=== PATIENT | female | born 1985 | race Caucasian/White ===

== ENCOUNTER 2017-11-21 12:00 | Observation (INO) | payer BC ==
[~2017-11-21] VITALS: Ht 162.6 cm; Wt 78.0 kg
[2017-11-21] MEDS ORDERED: PHARMACY COMMUNICATION MISC SCH (13:45)
[2017-11-21] MEDS ORDERED: LACTATED RINGERS 1000ML 1,000 ML IV SCH (13:45)
[2017-11-21] MEDS ORDERED: TERBUTALINE SULFATE VIAL 1MG/ML SQ SCH (13:45)
[2017-11-21] MEDS ORDERED: TERBUTALINE SULFATE VIAL 1MG/ML SQ ONE (14:27)
[2017-11-21] MEDS ORDERED: CELESTONE SOLUSPAN 6 MG/ML 5ML VIAL ONE (14:28)
[2017-11-21] MEDS ORDERED: CELESTONE SOLUSPAN 6 MG/ML 5ML VIAL IM SCH (15:00)
[2017-11-21] MEDS ORDERED: TERBUTALINE SULFATE PO SCH (15:00)
[2017-11-21] MEDS ORDERED: MAGNESIUM SULFATE 1,000 ML IV PRN (16:12)
[2017-11-21] MEDS ORDERED: MAGNESIUM 4GM PREMIX 100ML 100 ML IV SCH (16:15)
[2017-11-21] MEDS ORDERED: CALCIUM GLUCONATE 1 GM/10 ML VIAL IV PRN (16:15)
[2017-11-21] MEDS ORDERED: MAGNESIUM 4GM PREMIX 100ML 100 ML IV ONE (16:24)
[2017-11-21] MEDS ORDERED: MAGNESIUM SULFATE 1,000 ML IV ONE (16:55)
[2017-11-21] MEDS ORDERED: CALCIUM GLUCONATE 1 GM in SODIUM CHLORIDE 0.9% 50 ML IV PRN (17:30)
[2017-11-21] MEDS: OSELTAMIVIR PHOSPHATE 75 MG CAP PO SCH (17:40)
[2017-11-22] MEDS ORDERED: AMPICILLIN 1GM+NS 50ML 50 ML IV SCH (08:45)
[2017-11-22] MEDS ORDERED: AMPICILLIN 2GM+NS 100ML 100 ML IV SCH (08:45)
[2017-11-22] MEDS ORDERED: AMPICILLIN 2GM+NS 100ML 100 ML IV ONE (10:23)
[2017-11-22] MEDS: OSELTAMIVIR PHOSPHATE 75 MG CAP PO SCH (10:28)
== END 2017-11-22 11:20 | disposition home or self-care (01) ==
LOC: LDH 12:00
PROVIDERS: ADMIT Obstetrics & Gynecology; ATTEND Obstetrics & Gynecology
DX: O62.9 Abnormality of forces of labor, unspecified (principal); O40.3XX0 Polyhydramnios, third trimester, not applicable or unspecified; O24.419 Gestational diabetes mellitus in pregnancy, unspecified control; Z3A.34 34 weeks gestation of pregnancy
CPT/HCPCS: 36415; 83735; 96361 ×2; 96365; 96372 ×2; G0378 ×24; J0290; J0702; J3105; J3475 ×2; J7120

== ENCOUNTER 2017-12-12 06:08 | Inpatient (IN) | payer BC ==
[~2017-12-12] VITALS: Ht 162.6 cm; Wt 79.8 kg
[2017-12-12] MEDS ORDERED: LACTATED RINGERS 1000ML 1,000 ML IV PRN (06:12)
[2017-12-12] MEDS ORDERED: OXYTOCIN 10 USP UNITS/ML 20 UNIT in LACTATED RINGERS 1000ML 1,000 ML IV SCH (06:15)
[2017-12-12] MEDS ORDERED: TERBUTALINE SULFATE VIAL 1MG/ML SQ PRN (06:15)
[2017-12-12 07:07] LABS: APPEARANCE,URINE Cloudy (CLEAR); BILIRUBIN,URINE Negative (NEGATIVE); COLOR,URINE Yellow (YELLOW); GLUCOSE, URINE (UA) Negative (NEGATIVE); KETONES,URINE Negative (NEGATIVE); LEUKOCYTE ESTERASE ,URINE Moderate (NEGATIVE); NITRATE,URINE Negative (NEGATIVE); OCCULT BLOOD,URINE Negative (NEGATIVE); PROTEIN,URINE Negative (NEGATIVE); UROBILINOGEN,URINE 0.2 mg/dL (0.2-1.0)
[2017-12-12 07:12] LABS: BACTERIA,URINE Few /HPF (None Seen); SQUAMOUS EPITHELIAL CELL,UR Moderate /LPF (0-2)
[2017-12-12 07:51] LABS: MEAN CORPUSCULAR HEMOGLOBIN 29.5 pg (27.0-33.0); MEAN CORPUSCULAR HGB CONC 34.3 g/dL (32.0-36.0); PLATELET COUNT (AUTO) 303 K/uL (130-400); RED BLOOD CELL COUNT(AUTO) 3.84 MIL/uL (4.00-5.50); RED CELL DISTRIBUTION WIDTH 15.2 % (11.0-15.5); WHITE BLOOD COUNT (AUTO) 10.3 K/uL (4.8-10.8)
[2017-12-12] MEDS ORDERED: NALOXONE HCL 0.4 MG/1 ML ML IV PRN (09:15)
[2017-12-12] MEDS ORDERED: LACTATED RINGERS 500 ML 500 ML IV PRN (09:15)
[2017-12-12] MEDS ORDERED: EPHEDRINE SULFATE 50 MG/ML AMPULE IVP PRN (09:15)
[2017-12-12] MEDS ORDERED: ROPIVACAINE 0.2%200ML EPIDURAL 200 ML EP SCH (09:15)
[2017-12-12] MEDS ORDERED: OXYTOCIN 10 USP UNITS/ML ONE ×3 (09:19→22:35)
[2017-12-12] MEDS ORDERED: LACTATED RINGERS 1000ML 1,000 ML IV ONE ×2 (19:30→22:35)
[2017-12-12] MEDS ORDERED: BENZOCAINE/LANOLIN/ALOE VERA 60 ML AEROSOL TP PRN (20:15)
[2017-12-12] MEDS ORDERED: ACETAMINOPHEN 325 MG TAB PO PRN (20:15)
[2017-12-12] MEDS ORDERED: WITCH HAZEL 1 PAD TP PRN (20:15)
[2017-12-12] MEDS ORDERED: LANOLIN 30GM OINTMENT TP PRN (20:15)
[2017-12-12] MEDS ORDERED: DIPH,PERTUSS(ACELL),TET VAC/PF 0.5 ML VIAL IM PRN (20:15)
[2017-12-12] MEDS ORDERED: ACETAMINOPHEN-CODEINE 300/30MG TAB PO PRN (20:15)
[2017-12-12] MEDS ORDERED: HYDROCODONE/ACETAMINOPHEN 5/325 MG TAB PO PRN (20:15)
[2017-12-12] MEDS ORDERED: MEASLES/MUMPS/RUBELLA VACCINE, LIVE 0.5 ML/VIAL SQ PRN (20:15)
[2017-12-12] MEDS: DOCUSATE SODIUM 100 MG CAP PO SCH (21:05)
[2017-12-12 22:58] VITALS: BP 120/60
[2017-12-12] MEDS: IBUPROFEN 600 MG TABLET PO PRN (23:38)
[2017-12-13 03:28] VITALS: BP 104/54
[2017-12-13 07:27] VITALS: BP 104/62
[2017-12-13 08:36] LABS: HEPATITIS Bs ANTIGEN SCREEN P Negative (Negative)
[2017-12-13] MEDS: DOCUSATE SODIUM 100 MG CAP PO SCH ×2 (09:13→21:01)
[2017-12-13] MEDS: IBUPROFEN 600 MG TABLET PO PRN ×2 (09:14→15:57)
[2017-12-13 11:37] VITALS: BP 114/70
[2017-12-13 15:11] VITALS: BP 107/58
[2017-12-13 19:20] VITALS: BP 104/67
[2017-12-13 23:11] VITALS: BP 116/68
[2017-12-14 03:01] VITALS: BP 111/72
[2017-12-14] MEDS: IBUPROFEN 600 MG TABLET PO PRN (03:19)
[2017-12-14 07:22] VITALS: BP 98/62
[2017-12-14] MEDS: DOCUSATE SODIUM 100 MG CAP PO SCH (08:39)
[2017-12-14 11:34] VITALS: BP 118/80
== END 2017-12-14 15:15 | disposition home or self-care (01) | DRG 775 ==
LOC: LDH 06:08 → WSH 22:50
PROVIDERS: ADMIT Obstetrics & Gynecology; ATTEND Obstetrics & Gynecology
PROC: 10907ZC Drainage of Amniotic Fluid, Therapeutic from Products of Conception, Via Natural or Artificial Opening (ICD-10-PCS; principal; 2017-12-12)
PROC: 10E0XZZ Delivery of Products of Conception, External Approach (ICD-10-PCS; 2017-12-12)
PROC: 00HU33Z Insertion of Infusion Device into Spinal Canal, Percutaneous Approach (ICD-10-PCS; 2017-12-12)
PROC: 3E0R3BZ Introduction of Anesthetic Agent into Spinal Canal, Percutaneous Approach (ICD-10-PCS; 2017-12-12)
PROC: 3E0234Z Introduction of Serum, Toxoid and Vaccine into Muscle, Percutaneous Approach (ICD-10-PCS; 2017-12-13)
PROC: 30233S1 Transfusion of Nonautologous Globulin into Peripheral Vein, Percutaneous Approach (ICD-10-PCS; 2017-12-13)
DX: O32.1XX0 Maternal care for breech presentation, not applicable or unspecified (principal); O24.420 Gestational diabetes mellitus in childbirth, diet controlled; Z23 Encounter for immunization; Z37.0 Single live birth; Z3A.37 37 weeks gestation of pregnancy; Z90.49 Acquired absence of other specified parts of digestive tract
CPT/HCPCS: 36415; 81001; 83033; 85027; 86592; 86850; 86900; 86901; 87340; 90715; A4314; J2590; J2791; J3105; J7120

== ENCOUNTER 2020-12-05 19:39 | Inpatient (IN) | payer BC ==
[~2020-12-05] VITALS: Ht 162.6 cm; Wt 89.4 kg
[2020-12-05] MEDS ORDERED: BUTORPHANOL TARTRATE 2 MG/ML IVP PRN (20:00)
[2020-12-05] MEDS ORDERED: LACTATED RINGERS 500 ML 500 ML IV PRN (20:00)
[2020-12-05] MEDS ORDERED: EPHEDRINE SULFATE 50 MG/ML AMPULE IVP PRN (20:00)
[2020-12-05] MEDS ORDERED: NALOXONE HCL 0.4 MG/1 ML ML IV PRN (20:00)
[2020-12-05] MEDS ORDERED: DINOPROSTONE 10 MG VAGINAL SUPP EC SCH (20:00)
[2020-12-05 20:59] LABS: MEAN CORPUSCULAR HEMOGLOBIN 29.6 pg (27.0-33.0); MEAN CORPUSCULAR HGB CONC 32.9 g/dL (32.0-36.0); MEAN CORPUSCULAR VOLUME 89.7 fL (79-99); RED BLOOD CELL COUNT(AUTO) 3.79 MIL/uL (4.00-5.50); RED CELL DISTRIBUTION WIDTH 14.5 % (11.0-15.5); WHITE BLOOD COUNT (AUTO) 10.4 K/uL (4.8-10.8)
[2020-12-05 22:17] LABS: APPEARANCE,URINE Clear (CLEAR); BILIRUBIN,URINE Negative (NEGATIVE); COLOR,URINE Yellow (YELLOW); GLUCOSE, URINE (UA) Negative (NEGATIVE); KETONES,URINE Trace mg/dL (NEGATIVE); LEUKOCYTE ESTERASE ,URINE Trace (NEGATIVE); NITRATE,URINE Negative (NEGATIVE); OCCULT BLOOD,URINE Negative (NEGATIVE); PH,URINE 6.5 (5.0-8.0); PROTEIN,URINE Negative (NEGATIVE)
[2020-12-05 22:30] LABS: BACTERIA,URINE Few /HPF (None Seen); RBC,URINE 0-1 /HPF (0-1); WBC,URINE 0-1 /HPF (0-1)
[2020-12-06] MEDS ORDERED: OXYTOCIN-LR 20 UNITS/1000 ML 1,000 ML IV SCH ×2 (04:00→08:00)
[2020-12-06 04:14] VITALS: BP 105/66
[2020-12-06] MEDS ORDERED: LACTATED RINGERS 1000ML 1,000 ML IV ONE (10:47)
[2020-12-06] MEDS ORDERED: ROPIVACAINE 0.2% 100ML VIAL 100 ML EP SCH (16:00)
[2020-12-06] MEDS: AMPICILLIN 2GM+NS 100ML 100 ML IV SCH ×2 (16:46→22:24)
[2020-12-06] MEDS: LACTATED RINGERS 1000ML 1,000 ML IV SCH ×2 (16:46→21:57)
[2020-12-06] MEDS ORDERED: DINOPROSTONE 10 MG VAGINAL SUPP VG SCH (19:00)
[2020-12-07] MEDS ORDERED: LIDOCAINE HCL 1% 20 ML VIAL ONE (02:39)
[2020-12-07] MEDS ORDERED: LIDOCAINE 2%-EPI 1:200,000 20 ML VIAL IJ ONE (02:56)
[2020-12-07] MEDS: OXYTOCIN-LR 20 UNITS/1000 ML 1,000 ML IV SCH ×2 (03:11→05:52)
[2020-12-07] MEDS ORDERED: WITCH HAZEL 1 PAD TP PRN (03:30)
[2020-12-07] MEDS ORDERED: LANOLIN 30GM OINTMENT TP PRN (03:30)
[2020-12-07] MEDS ORDERED: BENZOCAINE/LANOLIN/ALOE VERA 60 ML AEROSOL TP PRN (03:30)
[2020-12-07] MEDS ORDERED: DIPH,PERTUSS(ACELL),TET VAC/PF 0.5 ML VIAL IM PRN (03:30)
[2020-12-07] MEDS ORDERED: ACETAMINOPHEN 325 MG TAB PO PRN (03:30)
[2020-12-07] MEDS ORDERED: MEASLES/MUMPS/RUBELLA VACCINE, LIVE 0.5 ML/VIAL SQ PRN (03:30)
[2020-12-07] MEDS ORDERED: ACETAMINOPHEN WITH CODEINE 1 TAB TAB PO PRN (03:30)
[2020-12-07] MEDS: AMPICILLIN 2GM+NS 100ML 100 ML IV SCH (04:00)
[2020-12-07] MEDS: IBUPROFEN 600 MG TABLET PO PRN ×2 (05:53→14:09)
[2020-12-07 06:29] VITALS: BP 106/58
[2020-12-07] MEDS ORDERED: LORA-868 PO (06:46)
[2020-12-07] MEDS ORDERED: CALC500T7 PO (06:46)
[2020-12-07] MEDS ORDERED: PREN1TAB26 PO (06:47)
[2020-12-07] MEDS ORDERED: OXYTOCIN-LR 20 UNITS/1000 ML 1,000 ML IV SCH (07:00)
[2020-12-07 08:45] VITALS: BP 99/60
[2020-12-07] MEDS ORDERED: DOCUSATE SODIUM 100 MG CAP PO SCH (09:00)
[2020-12-07 12:25] VITALS: BP 105/58
[2020-12-09 21:07] LABS: HEPATITIS Bs ANTIGEN SCREEN P Negative (Negative)
== END 2020-12-07 18:20 | disposition home or self-care (01) | DRG 807 ==
LOC: LDH 19:39 → OBSVTOIN 19:39 → WSH 12-07 09:55
PROVIDERS: ADMIT Obstetrics & Gynecology; ATTEND Obstetrics & Gynecology
PROC: 3E0P7VZ Introduction of Hormone into Female Reproductive, Via Natural or Artificial Opening (ICD-10-PCS; 2020-12-06)
PROC: 3E033VJ Introduction of Other Hormone into Peripheral Vein, Percutaneous Approach (ICD-10-PCS; 2020-12-06)
PROC: 10E0XZZ Delivery of Products of Conception, External Approach (ICD-10-PCS; principal; 2020-12-07)
PROC: 10907ZC Drainage of Amniotic Fluid, Therapeutic from Products of Conception, Via Natural or Artificial Opening (ICD-10-PCS; 2020-12-07)
PROC: 3E0R3BZ Introduction of Anesthetic Agent into Spinal Canal, Percutaneous Approach (ICD-10-PCS; 2020-12-07)
PROC: 00HU33Z Insertion of Infusion Device into Spinal Canal, Percutaneous Approach (ICD-10-PCS; 2020-12-07)
PROC: 3E0234Z Introduction of Serum, Toxoid and Vaccine into Muscle, Percutaneous Approach (ICD-10-PCS; 2020-12-07)
PROC: 3E0134Z Introduction of Serum, Toxoid and Vaccine into Subcutaneous Tissue, Percutaneous Approach (ICD-10-PCS; 2020-12-07)
DX: O24.420 Gestational diabetes mellitus in childbirth, diet controlled (principal); Z37.0 Single live birth; O69.81X0 Labor and delivery complicated by cord around neck, without compression, not applicable or unspecified; Z3A.38 38 weeks gestation of pregnancy; Z23 Encounter for immunization
CPT/HCPCS: 36415; 81001; 82947; 83033; 85027; 86592; 86850; 86900; 86901; 87340; 90715; G0378; J0290; J2590; J2795; J3490; J7120

== ENCOUNTER 2021-05-01 13:14 | Emergency (ER) | payer BC ==
[~2021-05-01] VITALS: Ht 162.6 cm; Wt 79.4 kg
[~2021-05-01 13:14] MED LIST: CALC500T7 PO; LORA-868 PO; PREN1TAB26 PO
[2021-05-01 13:15] VITALS: BP 102/63
[2021-05-01] MEDS ORDERED: IBUPROFEN 600 MG TABLET PO ONE (14:00)
[2021-05-01] MEDS ORDERED: ACETAMINOPHEN 325 MG TAB PO ONE (14:00)
[2021-05-01] MEDS ORDERED: IBUP-2070 PO (14:27)
[2021-05-01] MEDS ORDERED: ACETAMINOPHEN 325 MG TAB ONE (15:05)
[2021-05-01] MEDS ORDERED: IBUPROFEN 600 MG TABLET ONE (15:06)
== END 2021-05-01 15:15 | disposition home or self-care (01) ==
LOC: EDH 13:14
DX: S39.012A Strain of muscle, fascia and tendon of lower back, initial encounter (principal); Z88.1 Allergy status to other antibiotic agents; Z79.1 Long term (current) use of non-steroidal anti-inflammatories (NSAID); X58.XXXA Exposure to other specified factors, initial encounter; Y93.89 Activity, other specified; Y92.89 Other specified places as the place of occurrence of the external cause; Y99.8 Other external cause status
CPT/HCPCS: 72100